=== PATIENT | female | born 1990 | race Caucasian/White ===

== ENCOUNTER 2024-04-04 18:33 | Inpatient (IN) | payer SELFPAY ==
[~2024-04-04] VITALS: Ht 157.5 cm; Wt 61.2 kg
[~2024-04-04 18:33] MED LIST: ANUCORT-HC25 MG RC; BALSALAZIDE DI750 MG PO; CYCLOBENZAPRINE10 MG PO; DICYCLOMINE HCL10 MG PO; FLAGYL500 MG PO; NICODERM CQ1 EAC1 TOP; PANTOPRAZOLE SO40 MG PO; TYLENOL WITH C1 EACH PO
[2024-04-04 19:25] LABS: BASOPHILS % 0.3 % (0.0-1.0); EOSINOPHILS # (AUTO) 0.1 (0.0-0.4); EOSINOPHILS % 0.9 % (0.0-6.0); HEMATOCRIT 34.7 % (34.2-44.1); HEMOGLOBIN 9.5 g/dL (12.0-16.0); LYMPHOCYTES # (AUTO) 1.5 (1.0-3.2); LYMPHOCYTES % 12.6 % (18.0-39.1); MEAN CORPUSCULAR HEMOGLOBIN 21.5 pg (28-32); MEAN CORPUSCULAR HGB CONC 27.4 g/dL (31-35); MEAN CORPUSCULAR VOLUME 78.5 fL (81-99); MONOCYTES % 8.4 % (4.4-11.3); NEUTROPHILS # (AUTO) 9.1 (2.1-6.9); NEUTROPHILS % 77.3 % (38.7-80.0); PLATELET COUNT 512 x10e3/uL (140-360); RED BLOOD COUNT 4.42 x10e6/uL (3.6-5.1); RED CELL DISTRIBUTION WIDTH 18.8 % (11.7-14.4); WHITE BLOOD COUNT 11.76 x10e3/uL (4.8-10.8)
[2024-04-04] MEDS: Vancomycin IV 1 GM in SODIUM CHLORIDE 0.9% 250ML 250 ML IV ONE (19:37)
[2024-04-04] MEDS: SODIUM CHLORIDE 0.9% 1000ML 1,000 ML IV ONE ×2 (19:37→20:44)
[2024-04-04 19:38] VITALS: PULSE 90; RESP 16; O2SAT 98
[2024-04-04] MEDS: ACETAMINOPHEN 325 MG TAB PO ONE (19:38)
[2024-04-04 19:40] LABS: ALBUMIN 4.2 g/dL (3.5-5.0); ALBUMIN/GLOBULIN RATIO 0.9 (0.8-2.0); ANION GAP 18.3 mmol/L (8-16); BILIRUBIN,TOTAL 0.3 mg/dL (0.2-1.2); CALCIUM 9.3 mg/dL (8.4-10.2); CREATININE, SERUM 0.67 mg/dL (0.57-1.11); POTASSIUM 4.3 mmol/L (3.5-5.1); TOTAL PROTEIN 8.7 g/dL (6.5-8.1)
[2024-04-04] MEDS ORDERED: IOPAMIDOL 370 MG/ML 100 ML INFUS..BTL INJ ONE (19:45)
[2024-04-04 19:49] LABS: INFLUENZA A AG NEGATIVE (NEGATIVE); INFLUENZA B AG NEGATIVE (NEGATIVE)
[2024-04-04 19:50] LABS: CORONAVIRUS COVID-19 AG NEGATIVE (NEGATIVE)
[2024-04-04] MEDS: ONDANSETRON HCL INJ 2MG/ML 2ML 2 MG/ML VIAL IV STA (20:44)
[2024-04-04] MEDS: Morphine 2mg Syringe 2 MG/ML SYR IV ONE (20:45)
[2024-04-04 21:22] VITALS: PULSE 91; RESP 18; TEMP 98.5
[2024-04-04] MEDS ORDERED: DEXTROSE 50% SYRINGE 50 ML IV PRN (21:30)
[2024-04-04] MEDS: Morphine 4mg INJECTION 4 MG/ML INJ IV PRN (22:42)
[2024-04-04 22:48] VITALS: BP 114/81; PULSE 92; RESP 20; TEMP 98.9; O2SAT 96
[2024-04-04 22:49] VITALS: BP 94/57; TEMP 209.3; O2SAT 100
[2024-04-04 23:46] VITALS: BP 94/57; PULSE 92; RESP 20; TEMP 98.8; O2SAT 100
[2024-04-05] VITALS (13 sets, daily range): BP systolic 94–117; BP diastolic 57–84; PULSE 71–95; RESP 18–20; TEMP 97.8–98.8; O2SAT 97–100
[2024-04-05] MEDS: SODIUM CHLORIDE 0.9% 1000ML 1,000 ML IV SCH (00:12)
[2024-04-05] MEDS: ACETAMINOPHEN 325 MG TAB PO PRN (01:47)
[2024-04-05 05:06] LABS: ALBUMIN 3.2 g/dL (3.5-5.0); ANION GAP 12.6 mmol/L (8-16); BILIRUBIN,TOTAL 0.3 mg/dL (0.2-1.2); CREATININE, SERUM 0.57 mg/dL (0.57-1.11); POTASSIUM 3.6 mmol/L (3.5-5.1); TOTAL PROTEIN 6.4 g/dL (6.5-8.1)
[2024-04-05 05:49] LABS: BASOPHILS % 0.4 % (0.0-1.0); EOSINOPHILS # (AUTO) 0.2 (0.0-0.4); EOSINOPHILS % 3.1 % (0.0-6.0); HEMATOCRIT 27.3 % (34.2-44.1); HEMOGLOBIN 7.3 g/dL (12.0-16.0); LYMPHOCYTES # (AUTO) 1.7 (1.0-3.2); LYMPHOCYTES % 21.8 % (18.0-39.1); MEAN CORPUSCULAR HEMOGLOBIN 21.7 pg (28-32); MEAN CORPUSCULAR HGB CONC 26.7 g/dL (31-35); MEAN CORPUSCULAR VOLUME 81.3 fL (81-99); MONOCYTES # (AUTO) 0.8 (0.2-0.8); MONOCYTES % 9.7 % (4.4-11.3); NEUTROPHILS % 64.6 % (38.7-80.0); PLATELET COUNT 385 x10e3/uL (140-360); RED BLOOD COUNT 3.36 x10e6/uL (3.6-5.1); RED CELL DISTRIBUTION WIDTH 18.8 % (11.7-14.4); WHITE BLOOD COUNT 7.74 x10e3/uL (4.8-10.8)
[2024-04-05] MEDS: INSULIN REGULAR, HUMAN 100 UNIT/1 ML SQ SCH (07:30)
[2024-04-05] MEDS: Vancomycin IV 1 GM in SODIUM CHLORIDE 0.9% 250ML 250 ML IV SCH (09:56)
[2024-04-05] MEDS ORDERED: HYDROMORPHONE 1MG/1ML INJ IV PRN ×2 (10:00→12:00)
[2024-04-05] MEDS: PANTOPRAZOLE SOD 40 MG TABEC PO SCH (10:30)
[2024-04-05] MEDS ORDERED: POLYETHYLENE GLYCOL 3350 17 GM PACK PO PRN (10:30)
[2024-04-05] MEDS: HYDROCODONE/APAP 5MG-325MG TAB PO PRN (11:40)
[2024-04-05 12:37] LABS: FERRITIN 19.07 ng/mL (4.63-204.00)
[2024-04-05] MEDS: METOCLOPRAMIDE HCL 10 MG/2ML VIAL IV ONE (12:51)
[2024-04-05] MEDS: FAMOTIDINE 20 MG/2 ML VIAL IV ONE (12:51)
[2024-04-05] MEDS ORDERED: MIDAZOLAM HCL 2 MG/2 ML VIAL ONE ×2 (14:34→14:50)
[2024-04-05] MEDS ORDERED: KETAMINE 50MG/5ML SYR ONE (14:34)
[2024-04-05] MEDS ORDERED: PROPOFOL IV EMULSION 10 MG/ML 20 ML VIAL ONE (14:52)
[2024-04-05] MEDS: HYDROMORPHONE 1MG/1ML INJ IV PRN (16:44)
[2024-04-05] MEDS: TRIAMCINOLONE ACET 0.1% CREAM 15 GM TUBE TOP SCH (16:44)
[2024-04-05] MEDS: MESALAMINE 1,000 MG SUPP RC SCH (19:56)
[2024-04-05] MEDS: MESALAMINE 500 MG CAPCR PO SCH (19:56)
[2024-04-06] VITALS (8 sets, daily range): BP systolic 105–135; BP diastolic 68–98; PULSE 82–104; RESP 18–20; TEMP 97.7–98.5; O2SAT 95–100
[2024-04-06] MEDS: ONDANSETRON HCL INJ 2MG/ML 2ML 2 MG/ML VIAL IV PRN (04:49)
[2024-04-06 06:17] LABS: BASOPHILS % 0.4 % (0.0-1.0); EOSINOPHILS # (AUTO) 0.3 (0.0-0.4); EOSINOPHILS % 3.7 % (0.0-6.0); LYMPHOCYTES # (AUTO) 1.7 (1.0-3.2); LYMPHOCYTES % 22.6 % (18.0-39.1); MEAN CORPUSCULAR HEMOGLOBIN 21.6 pg (28-32); MEAN CORPUSCULAR HGB CONC 27.1 g/dL (31-35); MEAN CORPUSCULAR VOLUME 79.6 fL (81-99); MONOCYTES # (AUTO) 0.5 (0.2-0.8); MONOCYTES % 7.1 % (4.4-11.3); NEUTROPHILS # (AUTO) 4.9 (2.1-6.9); NEUTROPHILS % 65.8 % (38.7-80.0); PLATELET COUNT 422 x10e3/uL (140-360); RED BLOOD COUNT 3.57 x10e6/uL (3.6-5.1); RED CELL DISTRIBUTION WIDTH 18.2 % (11.7-14.4); WHITE BLOOD COUNT 7.49 x10e3/uL (4.8-10.8)
[2024-04-06 06:21] LABS: HEMATOCRIT 27.6 % (34.2-44.1); HEMOGLOBIN 7.8 g/dL (12.0-16.0)
[2024-04-06 06:46] LABS: ALANINE AMINOTRANSFERASE 12 IU/L (0-55); ALBUMIN 3.4 g/dL (3.5-5.0); ALBUMIN/GLOBULIN RATIO 0.9 (0.8-2.0); ALKALINE PHOSPHATASE 61 IU/L (40-150); ANION GAP 13.3 mmol/L (8-16); BILIRUBIN,TOTAL 0.3 mg/dL (0.2-1.2); BLOOD UREA NITROGEN < 5 mg/dL (7-26); CALCIUM 8.6 mg/dL (8.4-10.2); CARBON DIOXIDE 23 mmol/L (22-29); CHLORIDE 101 mmol/L (98-107); CREATININE, SERUM 0.62 mg/dL (0.57-1.11); EST GLOMERULAR FILTRATION RATE 119 ML/MIN (>=60); GLUCOSE 91 mg/dL (74-118); MAGNESIUM 1.9 MG/DL (1.3-2.1); SODIUM 134 mmol/L (136-145); TOTAL PROTEIN 7.2 g/dL (6.5-8.1)
[2024-04-06 06:47] LABS: BUN/CREATININE RATIO 8 (6-25); POTASSIUM 3.3 mmol/L (3.5-5.1)
[2024-04-06 07:09] LABS: FREE T4 (FREE THYROXINE) 1.06 ng/dL (0.8-1.8); THYROID STIMULATING HORMONE 2.429 uIU/mL (0.350-4.940)
[2024-04-06] MEDS: SENNOSIDES 8.6 MG TAB PO SCH (08:30)
[2024-04-06] MEDS: DOCUSATE SODIUM 100 MG CAP PO SCH (08:30)
[2024-04-06] MEDS: FERROUS SULFATE 325 MG TAB PO SCH (10:22)
[2024-04-06] MEDS: CYANOCOBALAMIN 1,000 MCG TAB PO SCH (10:23)
[2024-04-06] MEDS: POTASSIUM CHLORIDE 20 MEQ TAB CR PO ONE (10:23)
[2024-04-06] MEDS: TRIMETHOPRIM/SULFAMETHOXAZOLE 160-800 MG TAB PO SCH (12:42)
[2024-04-06] MEDS: HYDROMORPHONE 1MG/1ML INJ IV PRN ×2 (13:56→17:56)
[2024-04-07] VITALS: BP 121/70; PULSE 91; RESP 17; TEMP 97.9; O2SAT 94
[2024-04-07 04:00] VITALS: BP 131/88; PULSE 90; RESP 17; TEMP 98.1; O2SAT 100
[2024-04-07 05:19] LABS: BASOPHILS % 0.4 % (0.0-1.0); EOSINOPHILS # (AUTO) 0.3 (0.0-0.4); EOSINOPHILS % 3.8 % (0.0-6.0); HEMATOCRIT 30.3 % (34.2-44.1); HEMOGLOBIN 8.7 g/dL (12.0-16.0); LYMPHOCYTES # (AUTO) 1.5 (1.0-3.2); LYMPHOCYTES % 21.1 % (18.0-39.1); MEAN CORPUSCULAR HEMOGLOBIN 21.5 pg (28-32); MEAN CORPUSCULAR HGB CONC 28.7 g/dL (31-35); MEAN CORPUSCULAR VOLUME 74.8 fL (81-99); MONOCYTES # (AUTO) 0.6 (0.2-0.8); MONOCYTES % 9.3 % (4.4-11.3); NEUTROPHILS # (AUTO) 4.5 (2.1-6.9); NEUTROPHILS % 64.8 % (38.7-80.0); PLATELET COUNT 432 x10e3/uL (140-360); RED BLOOD COUNT 4.05 x10e6/uL (3.6-5.1); RED CELL DISTRIBUTION WIDTH 18.3 % (11.7-14.4); WHITE BLOOD COUNT 6.91 x10e3/uL (4.8-10.8)
[2024-04-07 05:46] LABS: ANION GAP 16.5 mmol/L (8-16); BLOOD UREA NITROGEN < 5 mg/dL (7-26); CALCIUM 9.2 mg/dL (8.4-10.2); CARBON DIOXIDE 21 mmol/L (22-29); CHLORIDE 102 mmol/L (98-107); CREATININE, SERUM 0.66 mg/dL (0.57-1.11); EST GLOMERULAR FILTRATION RATE 117 ML/MIN (>=60); GLUCOSE 120 mg/dL (74-118); POTASSIUM 3.5 mmol/L (3.5-5.1); SODIUM 136 mmol/L (136-145)
[2024-04-07 05:54] LABS: BUN/CREATININE RATIO 8 (6-25)
[2024-04-07 08:00] VITALS: BP 115/79; PULSE 96; RESP 19; TEMP 98.4; O2SAT 99
[2024-04-07 08:42] VITALS: BP 115/79; PULSE 96; RESP 19; TEMP 98.4; O2SAT 99
[2024-04-07 12:00] VITALS: BP 101/69; PULSE 89; RESP 18; TEMP 98.1; O2SAT 100
[2024-04-07] MEDS: IBUPROFEN 600 MG TAB PO STA (13:55)
[2024-04-07] MEDS ORDERED: PENTASA500 MG PO (15:52)
[2024-04-07] MEDS ORDERED: FEROSUL325 MG PO (15:52)
[2024-04-07] MEDS ORDERED: PANTOPRAZOLE SO40 MG PO (15:52)
[2024-04-07] MEDS ORDERED: DICYCLOMINE HCL10 MG PO (15:52)
[2024-04-07] MEDS ORDERED: BACTRIM DS TAB1 EACH PO (15:52)
[2024-04-07] MEDS ORDERED: B-121000 MC1 PO (15:52)
[2024-04-07 16:00] VITALS: BP 102/71; PULSE 92; RESP 18; TEMP 97.7; O2SAT 99
== END 2024-04-07 17:05 | disposition home or self-care (01) | DRG 571 ==
LOC: ER 19:00 → ERHOLD 21:22 → MED/SURG 22:00 → MED/SURG2 04-06 14:17
PROVIDERS: ADMIT Internal Medicine; ATTEND Internal Medicine
PROC: 0JB90ZZ Excision of Buttock Subcutaneous Tissue and Fascia, Open Approach (ICD-10-PCS; principal; 2024-04-05 14:35)
DX: L02.31 Cutaneous abscess of buttock (principal); E87.20 Acidosis, unspecified; K51.90 Ulcerative colitis, unspecified, without complications; K50.90 Crohn's disease, unspecified, without complications; L03.317 Cellulitis of buttock; E11.628 Type 2 diabetes mellitus with other skin complications; B95.62 Methicillin resistant Staphylococcus aureus infection as the cause of diseases classified elsewhere; E03.9 Hypothyroidism, unspecified; D50.9 Iron deficiency anemia, unspecified; K21.9 Gastro-esophageal reflux disease without esophagitis; M08.00 Unspecified juvenile rheumatoid arthritis of unspecified site; M41.9 Scoliosis, unspecified; Z11.52 Encounter for screening for COVID-19; G43.909 Migraine, unspecified, not intractable, without status migrainosus; F41.1 Generalized anxiety disorder; F33.41 Major depressive disorder, recurrent, in partial remission; K76.0 Fatty (change of) liver, not elsewhere classified; Z91.040 Latex allergy status; Z88.1 Allergy status to other antibiotic agents; Z88.8 Allergy status to other drugs, medicaments and biological substances; F17.210 Nicotine dependence, cigarettes, uncomplicated
CPT/HCPCS: 36415; 74177; 80048; 80053; 82607; 82728; 82948; 83036; 83540; 83605; 83735; 84439; 84443; 84466; 84702; 85025; 85045; 87040; 87071; 87075; 87186; 87205; 94799; 99284; J1171; J2250; J2270; J2405; J2543; J2765; J7030; J7050; Q9967

== ENCOUNTER 2024-04-15 18:23 | Emergency (ER) | payer SELFPAY ==
[~2024-04-15] VITALS: Ht 157.5 cm; Wt 61.2 kg
[~2024-04-15 18:23] MED LIST changes: +B-121000 MC1 PO; +BACTRIM DS TAB1 EACH PO; +FEROSUL325 MG PO; +PENTASA500 MG PO
[2024-04-15 18:45] VITALS: TEMP 97.8
[2024-04-15 19:22] LABS: BASOPHILS % 0.4 % (0.0-1.0); EOSINOPHILS # (AUTO) 0.2 (0.0-0.4); EOSINOPHILS % 2.2 % (0.0-6.0); HEMOGLOBIN 9.8 g/dL (12.0-16.0); LYMPHOCYTES # (AUTO) 1.6 (1.0-3.2); LYMPHOCYTES % 16.5 % (18.0-39.1); MEAN CORPUSCULAR HEMOGLOBIN 21.5 pg (28-32); MEAN CORPUSCULAR HGB CONC 27.2 g/dL (31-35); MEAN CORPUSCULAR VOLUME 78.9 fL (81-99); MONOCYTES # (AUTO) 0.5 (0.2-0.8); MONOCYTES % 4.9 % (4.4-11.3); NEUTROPHILS # (AUTO) 7.1 (2.1-6.9); NEUTROPHILS % 75.6 % (38.7-80.0); PLATELET COUNT 501 x10e3/uL (140-360); RED BLOOD COUNT 4.56 x10e6/uL (3.6-5.1); RED CELL DISTRIBUTION WIDTH 17.6 % (11.7-14.4); WHITE BLOOD COUNT 9.37 x10e3/uL (4.8-10.8)
[2024-04-15 19:42] LABS: INR 0.95; PARTIAL THROMBOPLASTIN TIME 27.1 seconds (23.8-35.5); PROTHROMBIN TIME 13.3 seconds (11.9-14.5)
[2024-04-15 19:48] LABS: ALBUMIN 4.2 g/dL (3.5-5.0); ALBUMIN/GLOBULIN RATIO 1.1 (0.8-2.0); ANION GAP 17.5 mmol/L (8-16); BILIRUBIN,TOTAL 0.3 mg/dL (0.2-1.2); CALCIUM 9.4 mg/dL (8.4-10.2); CREATININE, SERUM 0.65 mg/dL (0.57-1.11); POTASSIUM 3.5 mmol/L (3.5-5.1); TOTAL PROTEIN 8.2 g/dL (6.5-8.1)
[2024-04-15 20:54] VITALS: PULSE 88; RESP 18; O2SAT 100
[2024-04-15 20:58] VITALS: TEMP 98.3
== END 2024-04-15 21:00 | disposition home or self-care (01) ==
LOC: ER 19:10
DX: R04.0 Epistaxis (principal); R09.81 Nasal congestion; K21.9 Gastro-esophageal reflux disease without esophagitis; R51.9 Headache, unspecified; M41.9 Scoliosis, unspecified; M08.0A Unspecified juvenile rheumatoid arthritis, other specified site; F60.3 Borderline personality disorder; Z87.19 Personal history of other diseases of the digestive system
CPT/HCPCS: 36415; 70450; 70486; 80053; 85025; 85610; 85730; 99283